=== PATIENT | male | born 1960 | race Caucasian/White ===

== ENCOUNTER 2016-10-19 10:50 | Emergency (ER) | payer MEDICARE, MEDICAID ==
[~2016-10-19] VITALS: Wt 74.0 kg
[2016-10-19] MEDS ORDERED: ONDANSETRON 4 MG INJ IV STA (11:28)
[2016-10-19] MEDS ORDERED: morphine 4 MG/ML VIAL IV STA (11:28)
[2016-10-19] MEDS ORDERED: SOD CHLORIDE 0.9% 1,000 ML IV STA (11:28)
[2016-10-19] MEDS ORDERED: MARA150T4 PO (11:47)
[2016-10-19] MEDS ORDERED: DARU600T3 PO (11:48)
[2016-10-19] MEDS ORDERED: NORV100 PO (11:49)
[2016-10-19] MEDS ORDERED: RALT400T4 PO (11:49)
[2016-10-19] MEDS ORDERED: RANI150T5 PO (11:49)
[2016-10-19] MEDS ORDERED: GABA-528 PO (11:50)
[2016-10-19] MEDS ORDERED: ATOR20TA38 PO (11:50)
[2016-10-19 11:56] LABS: BASOPHILS % 0.2 % (0.0-2.0); EOSINOPHILS % 0.4 % (0.0-7.0); HEMATOCRIT 42.3 % (42.0-52.0); HEMOGLOBIN 15.1 g/dl (14.0-18.0); LYMPHOCYTES # 1.4 10^3/ul (0.8-2.9); LYMPHOCYTES % 25.2 % (15.0-51.0); MEAN CORPUSCULAR HEMOGLOBIN 31.7 pg (29.0-33.0); MEAN CORPUSCULAR HGB CONC 35.7 g/dl (32.0-37.0); MEAN CORPUSCULAR VOLUME 88.9 fl (82.0-101.0); MEAN PLATELET VOLUME 10.5 fl (7.4-10.4); MONOCYTE # 0.6 10^3/ul (0.3-0.9); MONOCYTES % 10.5 % (0.0-11.0); NEUTROPHIL # 3.6 10^3/ul (1.6-7.5); NEUTROPHILS % 63.5 % (39.0-77.0); PLATELET COUNT 162 10^3/UL (140-415); RED BLOOD COUNT 4.76 10^6/ul (4.70-6.10); RED CELL DISTRIBUTION WIDTH 11.5 % (11.5-14.5); WHITE BLOOD COUNT 5.6 10^3/ul (4.8-10.8)
--- NOTE | 2016-10-19 12:07 | ERD ---
ER Documentation Chief Complaint Date/Time DATE: 10/19/16 TIME: 12:03 Chief Complaint ABD PAIN, DIARRHEA, ONSET 1 DAY HPI This is a 55-year-old Albanian-speaking male. 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 The patient has a history of HIV, last CD4 count unknown, on antivirals. The patient presents with less than 24 hours of symptoms that include mild diffuse abdominal cramping associated with loose stools. No blood in the stool no mucus in the stool. No recent travel, sick contacts, antibiotics. No nausea or vomiting. ROS All systems reviewed and are negative except as per history of present illness. Medications Home Meds Active Scripts Ciprofloxacin Hcl* (Ciprofloxacin Hcl*) 500 Mg Tablet, 500 MG PO BID for 3 Days , TAB Prov:LEO ARMENDARIZ MD 10/19/16 Reported Medications Gabapentin* (Gabapentin*) 800 Mg Tablet, 800 MG PO TID, #90 TAB 10/19/16 Atorvastatin Calcium* (Atorvastatin Calcium*) 20 Mg Tablet, 20 MG PO QHS, #30 TAB 10/19/16 Ranitidine Hcl* (Ranitidine Hcl*) 150 Mg Tablet, 150 MG PO Q12, #60 TAB 10/19/16 Raltegravir Potassium* (Isentress*) 400 Mg Tablet, 400 MG PO BID, TAB 10/19/16 Ritonavir* (Norvir*) 100 Mg Capsule, 100 MG PO BID, CAP 10/19/16 Darunavir Ethanolate* (Prezista*) 600 Mg Tablet, 600 MG PO BID, TAB 10/19/16 Maraviroc (Selzentry) 150 Mg Tablet, 150 MG PO BID, TAB 10/19/16 Allergies Allergies: Coded Allergies: No Known Drug Allergies (Verified Allergy, Unknown, 10/19/16) PMhx/Soc History of Surgery: Yes (BRAIN TUMOUR REMOVAL ) Anesthesia Reaction: No Hx Neurological Disorder: No Hx Respiratory Disorders: No Hx Cardiac Disorders: No Hx Psychiatric Problems: No Hx Miscellaneous Medical Probl: Yes (HIV) Hx Alcohol Use: No Hx Substance Use: No Hx Tobacco Use: No Smoking Status: Never smoker FmHx Family History: No diabetes Physical Exam Vitals Vital Signs Date Time Temp Pulse Resp B/P Pulse Ox O2 Delivery O2 Flow Rate FiO2 10/19/16 10:54 98.3 73 17 124/69 100 Physical Exam General: Well developed, well nourished, no acute distress Head: Normocephalic, atraumatic. Eyes: Pupils equally reactive, EOM intact ENT: Moist mucous membranes Neck: Supple, no lymphadenopathy Respiratory: Lungs clear bilaterally, no distress Cardiovascular: RRR, no murmurs, rubs, or gallops Abdominal: Soft, non-tender, non-distended, no peritoneal signs, negative Schulz sign, no tenderness to McBurney's point : Deferred MSK: No edema, no unilateral swelling, 5/5 strength Neurologic: Alert and oriented, moving all extremities, normal speech, no focal weakness, no cerebellar signs Skin: No rash Psych: Normal mood Result Diagram: 10/19/16 1128 10/19/16 1128 Results 24 hrs Laboratory Tests Test 10/19/16 11:28 White Blood Count 5.610^3/ul Red Blood Count 4.7610^6/ul Hemoglobin 15.1g/dl Hematocrit 42.3% Mean Corpuscular Volume 88.9fl Mean Corpuscular Hemoglobin 31.7pg Mean Corpuscular Hemoglobin Concent 35.7g/dl Red Cell Distribution Width 11.5% Platelet Count 56267^3/UL Mean Platelet Volume 10.5fl Neutrophils % 63.5% Lymphocytes % 25.2% Monocytes % 10.5% Eosinophils % 0.4% Basophils % 0.2% Nucleated Red Blood Cells % 0.0/100WBC Neutrophils # 3.610^3/ul Lymphocytes # 1.410^3/ul Monocytes # 0.610^3/ul Eosinophils # 0.010^3/ul Basophils # 0.010^3/ul Nucleated Red Blood Cells # 0.010^3/ul Sodium Level 148mmol/L Potassium Level 3.7mmol/L Chloride Level 103mmol/L Carbon Dioxide Level 29mmol/L Anion Gap 20 Blood Urea Nitrogen 13mg/dl Creatinine 0.98mg/dl Glucose Level 97mg/dl Calcium Level 9.3mg/dl Total Bilirubin 1.3mg/dl Direct Bilirubin 0.00mg/dl Indirect Bilirubin 1.3mg/dl Aspartate Amino Transf (AST/SGOT) 16IU/L Alanine Aminotransferase (ALT/SGPT) 29IU/L Alkaline Phosphatase 80IU/L Total Protein 8.2g/dl Albumin 4.9g/dl Globulin 3.30g/dl Albumin/Globulin Ratio 1.48 Lipase 61U/L Current Medications Medications (Trade) Dose Ordered Sig/Randolph Route PRN Reason Start Time Stop Time Status Last Admin Dose Admin Sodium Chloride (NS) 1,000 ml @ 1,000 mls/hr Q1H STAT IV 10/19/16 11:28 10/19/16 12:27 10/19/16 11:34 Morphine Sulfate (morphine) 4 mg ONCE STAT IV 10/19/16 11:28 10/19/16 11:29 DC 10/19/16 11:35 Ondansetron HCl (Zofran Inj) 4 mg ONCE STAT IV 10/19/16 11:28 10/19/16 11:29 DC 10/19/16 11:34 Procedures/MDM LAB INTERPRETATION: No leukocytosis, no significant dehydration MEDICAL DECISION MAKING: The patient presents with loose stools, abdominal cramping that is most consistent with likely viral process. However given the patient's HIV status cannot rule out bacterial process. Low concern for opportunistic infection at this time. However, given the patient's HIV status, empiric short course of ciprofloxacin may be reasonable. Given his benign abdominal exam and otherwise well-appearing state I do not believe CT imaging of the abdomen and pelvis is necessary. ER COURSE: Patient was given IV fluids and pain medication. Repeat abdominal exam is benign. I believe empiric 3 day course of Cipro would be reasonable. Further course puts the patient at increased risk for complications. Patient advised to follow-up with primary care physician and return for any worsening symptoms. I kept the patient and/or family informed of laboratory and diagnostic imaging results throughout the emergency room course. DISPOSITION PLAN: We discussed follow up with the patient's primary care doctor within 24 to 48 hours as needed. We also discussed return to the emergency room for worsening symptoms or worsening condition. Outpatient referral: [None required] Discharge Medications: Ciprofloxacin Departure Diagnosis: Primary Impression: Diarrhea Diarrhea type: unspecified type Qualified Code: R19.7 - Diarrhea, unspecified type Additional Impression: Abdominal pain Abdominal location: generalized Qualified Code: R10.84 - Generalized abdominal pain Condition: Stable LEO ARMENDARIZ MD Oct 19, 2016 12:07
[2016-10-19 12:12] LABS: ALBUMIN 4.9 g/dl (3.3-4.9); ALBUMIN/GLOBULIN RATIO 1.48; BILIRUBIN,INDIRECT 1.3 mg/dl (0-1.1); BILIRUBIN,TOTAL 1.3 mg/dl (0.2-1.3); CALCIUM 9.3 mg/dl (8.4-10.2); CREATININE 0.98 mg/dl (0.61-1.24); POTASSIUM 3.7 mmol/L (3.5-5.1); TOTAL PROTEIN 8.2 g/dl (6.1-8.1)
[2016-10-19] MEDS ORDERED: CIPR500T4 PO (12:26)
[2016-10-19 12:47] VITALS: BP 122/69; PULSE 68; RESP 18; TEMP 98.3
== END 2016-10-19 12:50 | disposition home or self-care (01) ==
LOC: E/R 10:50
DX: R19.7 Diarrhea, unspecified (principal)
CPT/HCPCS: 36415; 80053; 83690; 85025; 96361; 96374; 96375; 99284; J2270; J2405; J7030